=== PATIENT | male | born 1990 | race Caucasian/White ===

== ENCOUNTER 2023-04-10 17:53 | Emergency (ER) | payer MEDICAID ==
[~2023-04-10] VITALS: Ht 180.3 cm; Wt 92.1 kg
[2023-04-10 18:16] VITALS: BP_SYST 151; PULSE 115; RESP 19; TEMP 97.8; O2SAT 96
[2023-04-10] MEDS ORDERED: cephALEXin 500 MG CAPSULE PO ONE (21:00)
[2023-04-10] MEDS ORDERED: IBUPROFEN 800 MG TABLET PO ONE (21:00)
[2023-04-10] MEDS ORDERED: IBUP-1971 PO (21:25)
[2023-04-10] MEDS ORDERED: CEPH-548 PO (21:25)
[2023-04-10 21:31] VITALS: BP_SYST 141; PULSE 96; RESP 18; TEMP 99; O2SAT 96
== END 2023-04-10 21:31 | disposition home or self-care (01) ==
LOC: SED 17:53
DX: S60.112A Contusion of left thumb with damage to nail, initial encounter (principal); L03.012 Cellulitis of left finger; Z79.899 Other long term (current) drug therapy; W20.8XXA Other cause of strike by thrown, projected or falling object, initial encounter; Y93.89 Activity, other specified; Y92.89 Other specified places as the place of occurrence of the external cause; Y99.8 Other external cause status
CPT/HCPCS: 99283